=== PATIENT | female | born 1995 | race Hispanic/Latino ===

== ENCOUNTER 2018-12-19 05:31 | Inpatient (IN) | payer BC ==
--- OUTSIDE RECORDS SUMMARY | 2018-12-19 05:33 | XMS REPORT ---
:1995 Author Organization eClinicalWorks Care Team Providers Name Role Phone Herbert Mars Provider Role Unavailable Allergies, Adverse Reactions, Alerts Substance Reaction Event Type N.K.D.A. Info Not Available Non Drug Allergy Problems Problem Type Condition Code Onset Dates Condition Status Assessment Encounter for supervision of other Z34.81 Active normal in first trimester Assessment Amenorrhea N91.2 Active Assessment Encounter for supervision of Z34.91 Active low-risk in first trimester Assessment Encounter to determine O36.80X0 Active viability of , single or unspecified fetus Medications No Known Medications Results Name Result Date Reference Range Unit Abnormality Flag URINALYSIS AUTO W/O SCOPE (68209) ----NIT neg [id number] ----URO 0.2 [id number] ----PROTEIN neg [id number] ----pH 7.0 20180508 ----BLO 1.020 [id number] ----GLUCOSE neg [id number] ----STEPHANIE 1+ [id number] ----BILIRUBIN neg [id number] ----KETONES neg [id number] ----SPECIFIC GRAVITY neg [id number] Summary Purpose eClinicalWorks Submission
--- OUTSIDE RECORDS SUMMARY | 2018-12-19 05:33 | XMS REPORT ---
:1995 Author Organization eClinicalWorks Care Team Providers Name Role Phone Herbert Mars Provider Role Unavailable Allergies No Known Allergies Problems Problem Type Condition Code Onset Dates Condition Status Problem Uterine size-date discrepancy in O26.843 Active third trimester Problem Encounter for supervision of other Z34.82 Active normal in second trimester Problem Encounter for supervision of other Z34.83 Active normal , third trimester Assessment Encounter for supervision of other Z34.83 Active normal , third trimester Medications Medication Code Code Instructions Start End Status Dosage System Date Date + DHA [facility] [id number] 27-1 & 250 MG Active as directed Orally Results No Known Results Summary Purpose eClinicalWorks Submission
--- OUTSIDE RECORDS SUMMARY | 2018-12-19 05:33 | XMS REPORT ---
[...] Status Dosage System Date Date + DHA [facility] [id number] 27-1 & 250 MG Active as directed Orally Results No Known Results Summary Purpose eClinicalWorks Submission
--- OUTSIDE RECORDS SUMMARY | 2018-12-19 05:33 | XMS REPORT ---
[...] Status Dosage System Date Date + DHA [facility] [id number] 27-1 & 250 MG Active as directed Orally Results No Known Results Summary Purpose eClinicalWorks Submission
--- OUTSIDE RECORDS SUMMARY | 2018-12-19 05:33 | XMS REPORT ---
[...] Status Dosage System Date Date + DHA [facility] [id number] 27-1 & 250 MG Active as directed Orally Results No Known Results Summary Purpose eClinicalWorks Submission
--- OUTSIDE RECORDS SUMMARY | 2018-12-19 05:33 | XMS REPORT ---
:1995 Author Organization eClinicalWorks Care Team Providers Name Role Phone Natasha Turner Provider Role Unavailable Allergies, Adverse Reactions, Alerts Substance Reaction Event Type N.K.D.A. Info Not Available Non Drug Allergy Problems Problem Type Condition Code Onset Dates Condition Status Assessment Paraumbilical hernia K42.9 Active Medications No Known Medications Results No Known Results Summary Purpose eClinicalAddShoppers Submission
--- OUTSIDE RECORDS SUMMARY | 2018-12-19 05:33 | XMS REPORT ---
:1995 Author Organization eClinicalWorks Care Team Providers Name Role Phone Herbert Mars Provider Role Unavailable Allergies, Adverse Reactions, Alerts Substance Reaction Event Type N.K.D.A. Info Not Available Non Drug Allergy Problems Problem Type Condition Code Onset Dates Condition Status Assessment Encounter for supervision of Z34.91 Active low-risk in first trimester Assessment Paraumbilical hernia K42.9 Active Medications Medication Code Code Instructions Start End Status Dosage System Date Date + DHA [facility] [id number] 27-1 & 250 MG Active as directed Orally Results No Known Results Summary Purpose eClinicalWorks Submission
--- OUTSIDE RECORDS SUMMARY | 2018-12-19 05:33 | XMS REPORT ---
:1995 [facility] Care Team Providers Name Role Phone Jerad Herbert Provider Role Unavailable Allergies No Known Allergies Problems Problem Type Condition Code Onset Dates Condition Status Assessment Encounter for supervision of other Z34.82 Active normal in second trimester Problem Encounter for supervision of other Z34.82 Active normal in second trimester Medications Medication Code Code Instructions Start End Status Dosage System Date Date + DHA [facility] [id number] 27-1 & 250 MG Active as directed Orally Results Name Result Date Reference Range Unit Abnormality Flag CBC (INCLUDES DIFF/PLT) ----ABSOLUTE BASOPHILS 39 [id number] 0-200 cells/uL N ----ABSOLUTE EOSINOPHILS 58 34190040 15-500 cells/uL N ----LYMPHOCYTES 20.4 03559347 % N ----NEUTROPHILS 73.2 22388738 % N ----PLATELET COUNT 243 [id number] 140-400 Thousand/uL N ----EOSINOPHILS 0.6 68709434 % N ----RDW 12.9 51444418 11.0-15.0 % N ----MONOCYTES 5.4 47126858 % N ----MCHC 33.7 95910825 32.0-36.0 g/dL N ----MCH 30.0 [id number] 27.0-33.0 pg N ----MCV 89.0 16354095 80.0-100.0 fL N ----ABSOLUTE NEUTROPHILS 7100 96114751 0654-5234 cells/uL N ----MPV 10.7 50310770 7.5-12.5 fL N ----ABSOLUTE MONOCYTES 524 32011846 200-950 cells/uL N ----ABSOLUTE LYMPHOCYTES 1979 90633234 850-3900 cells/uL N ----BASOPHILS 0.4 30795618 % N ----WHITE BLOOD CELL 9.7 77590019 3.8-10.8 Thousand/uL N COUNT ----RED BLOOD CELL COUNT 3.83 11869488 3.80-5.10 Million/uL N ----HEMOGLOBIN 11.5 20180908 11.7-15.5 g/dL L ----HEMATOCRIT 34.1 20180908 35.0-45.0 % L Summary Purpose eClinicalWorks Submission
--- OUTSIDE RECORDS SUMMARY | 2018-12-19 05:33 | XMS REPORT ---
[...] Z34.83 Active normal , third trimester Assessment Uterine size-date discrepancy in O26.843 Active third trimester Assessment Encounter for supervision of other Z34.83 Active normal , third trimester Medications Medication Code Code Instructions Start End Status Dosage System Date Date + DHA [facility] [id number] 27-1 & 250 MG Active as directed Orally Results No Known Results Summary Purpose eClinicalWorks Submission
--- OUTSIDE RECORDS SUMMARY | 2018-12-19 05:33 | XMS REPORT ---
:1995 Author Organization eClinicalWorks Care Team Providers Name Role Phone Herbert Mars Provider Role Unavailable Allergies No Known Allergies Problems Problem Type Condition Code Onset Dates Condition Status Assessment Elevated glucose tolerance test R73.09 Active Problem Encounter for supervision of other Z34.82 Active normal in second trimester Medications No Known Medications Results No Known Results Summary Purpose eClinicalWorks Submission
[2018-12-19] MEDS ORDERED: PROMETHAZINE 25 MG/ML VIAL IV PRN (09:21)
[2018-12-19] MEDS ORDERED: BUTORPHANOL 1 MG/ML INJ IV PRN (09:21)
[2018-12-19] MEDS ORDERED: Ringers Lactate 1,000 ML IV PRN (09:21)
[2018-12-19] MEDS ORDERED: Ringers Lactate 1,000 ML IV SCH (10:00)
[2018-12-19 10:09] LABS: RPR Titer ND
[2018-12-19 10:13] LABS: Absolute Lymphocytes (CBC) 1.9 K/uL (0.7-4.9); Absolute Monocytes 0.6 K/uL (0.1-1.3); Absolute Neutrophil 11.1 K/uL (1.8-8.0); Basophils % 0.5 % (0-1.3); Hematocrit 36.7 % (36.0-45.0); Lymphocytes % 13.7 % (15.3-44.8); MPV 9.8 fL (7.6-11.3); Monocytes % 4.5 % (3.3-12.3); RBC Red Blood Cell Count 4.21 M/uL (3.86-4.86)
[2018-12-19 10:14] LABS: Urine Appearance CLEAR; Urine Bilirubin NEGATIVE (NEG); Urine Blood NEGATIVE (NEG); Urine Color YELLOW; Urine Glucose NEGATIVE (NEG); Urine Protein NEGATIVE (NEG); Urine Specific Gravity <=1.005 (1.005-1.030); Urine Urobilinogen 0.2 mg/dL (0.2-1.0); Urine pH 6.5 (5.0-7.0)
[2018-12-19 10:20] LABS: Urine Microscopic Reflex NO UMIC
[2018-12-19] MEDS ORDERED: FENTANYL CITR 100 MCG/2 ML IV ONE (10:22)
[2018-12-19] MEDS ORDERED: ROPIVACAINE HCL 100 ML IV PRN (10:22)
[2018-12-19] MEDS ORDERED: ROPIVACAINE HCL 0.2% 20ML AMP IV ONE (10:24)
[2018-12-19] MEDS ORDERED: METHYLERGONOVINE 0.2MG/ML AMP IM ONE (10:30)
[2018-12-19] MEDS ORDERED: LIDOCAINE 1% MPF 30 ML VIAL SQ ONE (10:30)
[2018-12-19] MEDS ORDERED: CARBOPROST TROME 250 MCG/ML IM ONE (10:30)
[2018-12-19 10:56] LABS: Blood Morphology Comment NOT SEEN (NOT SEEN); Platelet Estimate ADEQ; Urine White Blood Cell Casts OK
[2018-12-19] MEDS ORDERED: OXYTOCIN/LR 20 UNIT/1,000 ML BAG IV SCH (11:00)
[2018-12-19 11:41] VITALS: BMI 29.8
[2018-12-19] MEDS ORDERED: NA CHLORIDE 0.9% 1,000 ML ONE (12:34)
--- NOTE | 2018-12-19 13:43 | P.OBGYNHP ---
Certification for Inpatient Patient admitted to: Inpatient With expected LOS: <2 Midnights Patient will require the following post-hospital care: None Practitioner: I am a practitioner with admitting privileges, knowledge of patient current condition, hospital course, and medical plan of care. Services: Services provided to patient in accordance with Admission requirements found in Title 42 Section 412.3 of the Code of Federal Regulations Patient History Date of Service: 12/19/18 Reason for admission: LABOR History of Present Illness: Patient is a 22-year-old 2 para 1001 who presents at 38 weeks and 4 days gestation in active labor. Patient 1st presented to labor and delivery and was found to be fingertip. She is now dilated to 2 cm and 60% effaced. Patient is to be admitted for active management of labor. Patient desires epidural placement. Anesthesia will be contacted. Patient has obtained care with me beginning at 9 weeks gestation. care has been uncomplicated. Patient does have an umbilical hernia for which she is going to follow up with General surgery. Rh positive. Rubella immune. Hepatitis negative HIV negative. GBS negative. See record for further details Allergies No Known Allergies Allergy (Unverified 06/04/16 21:24) Home Medications: Pnv No.95/Ferrous Fum/Folic AC [ Caplet] 1 each PO DAILY 12/19/18 - Past Medical/Surgical History Has patient received pneumonia vaccine in the past: No Diabetic: No Past Medical History: Patient denies medical history -: Vaginal delivery x1 - Family History Family History: Reviewed- Non-Contributory - Social History Smoking Status: Never smoker Alcohol use: No CD- Drugs: No Caffeine use: Yes Place of Residence: Home Review of Systems 10-point ROS is otherwise unremarkable Physical Examination - Vital Signs Temperature: 98.4 F Blood Pressure: 119/72 Pulse: 112 Respirations: 18 - General General: Alert, Oriented x3, Moderate distress HEENT: Atraumatic Neck: Supple Respiratory: Normal air movement Cardiovascular: No edema, Normal pulses Gastrointestinal: Other (Gravid abdomen) Musculoskeletal: No clubbing, No swelling Integumentary: No rashes, No breakdown Neurological: Normal gait, Normal speech - Female Pelvic External genitalia: Normal, No lesions, No masses Vagina: Normal, [place], Moist Cervix: Dilation (3 cm), Effacement (70%), station (-3) Uterus: Gravid Adnexa: Unable to evaluate - Obstetrics heart rate tracing: Category 2 Amniotic membrane: AROM (Light meconium) Laboratory Data (last 24 hrs) 12/19/18 09:40: WBC 13.7 H, Hgb 12.2, Hct 36.7, Plt Count 205 Assessment and Plan - Plan Patient is a 22-year-old 2 para 1001 at 30 weeks and labor. Rupture of membranes has been performed she patient is GBS negative. Epidural will be placed soon. Continuous maternal monitoring are performed. Routine intrapartum care will be provided. Anticipate vaginal . Discharge Plan: Home Plan to discharge in: 48 Hours - Advance Directives Does patient have a Living Will: No Does patient have a Durable POA for Healthcare: No
[2018-12-19] MEDS ORDERED: METHYLERGONOVINE 0.2 MG TAB PO PRN (13:48)
[2018-12-19] MEDS ORDERED: IBUPROFEN 200 MG TAB PO PRN (13:48)
[2018-12-19] MEDS ORDERED: ONDANSETRON 4 MG (ODT) TAB PO PRN (13:48)
[2018-12-19] MEDS ORDERED: ACETAMINOPHEN 500 MG TAB PO PRN (13:48)
[2018-12-19] MEDS ORDERED: DOCUSATE NA/SENNA CONC 1 TAB PO PRN (13:48)
[2018-12-19] MEDS ORDERED: Oxycodone HCl/Acetaminophen 1 TAB TAB PO PRN (13:48)
[2018-12-19] MEDS ORDERED: BISACODYL 10 MG RECTAL SUPP RECT PRN (13:48)
--- NOTE | 2018-12-19 13:48 | P.OP ---
Date of Service: 12/19/18 Findings and Operative Technique Patient is a 22-year-old 2 para 1001 who presented for admission for labor. Rupture of membranes was performed light meconium fluid was noted. Patient was started on Pitocin for labor augmentation and epidural catheter was placed for pain management. Later patient was found to have recurrent variable deceleration. At this time a uterine pressure catheter was placed to perform amnio infusion. This helped to alleviate some of the decelerations and patient rapidly dilated to fully dilated. Patient delivered a viable female infant in cephalic presentation on December 19, 2018 at __13:25___. Once infant was delivered terminal meconium was noted. Umbilical cord was noted to be short. The umbilical cord was clamped and cut nose and mouth were suctioned with a suction bulb. Patient will placed on mother's abdomen for skin to skin bonding. Attention was then turned to the umbilical cord cord blood was obtained. Placenta was then delivered with gentle traction. Placenta was examined and noted to be intact. Perineum was inspected was noted to have a first-degree laceration this was repaired with a 2 0 Vicryl in the usual fashion. Fundus was palpated and found to be firm estimated blood loss was 200 cc. Patient and baby are both doing well. Apgars were _9/9___. Infant's weight was found to be __6 lb 2 oz__. First stage of labor was ___5 hours 4 min __. 2nd stage of labor was ___17 min.
[2018-12-19] MEDS ORDERED: Ringers Lactate 1,000 ML IV ONE (17:20)
[2018-12-19 21:41] LABS: RPR (Rapid Plasma Reagin) NON-REACT (NON-REACT)
[2018-12-20 06:44] LABS: Absolute Lymphocytes (CBC) 2.4 K/uL (0.7-4.9); Absolute Monocytes 0.9 K/uL (0.1-1.3); Absolute Neutrophil 8.6 K/uL (1.8-8.0); Basophils % 0.3 % (0-1.3); Eosinophils % 0.4 % (0-4.4); Hematocrit 33.5 % (36.0-45.0); Lymphocytes % 19.8 % (15.3-44.8); MPV 9.2 fL (7.6-11.3); Monocytes % 7.8 % (3.3-12.3); RBC Red Blood Cell Count 3.83 M/uL (3.86-4.86)
[2018-12-20 10:39] VITALS: BP 116/58; TEMP 97.6
--- NOTE | 2018-12-20 20:33 | P.DS ---
Admission Date: 12/19/18 Discharge Date: 12/20/18 Disposition: ROUTINE DISCHARGE Discharge Condition: GOOD Reason for Admission: LABOR Brief History of Present Illness: Patient is a 22-year-old 2 para 1001 who presents at 38 weeks and 4 days gestation in active labor. Patient 1st presented to labor and delivery and was found to be fingertip. She is now dilated to 2 cm and 60% effaced. Patient is to be admitted for active management of labor. Patient desires epidural placement. Anesthesia will be contacted. Patient has obtained care with ne beginning at 9 weeks gestation. care has been uncomplicated. Patient does have an umbilical hernia for which she is going to follow up with General surgery. Rh positive. Rubella immune. Hepatitis negative HIV negative. GBS negative. See record for further details Hospital Course: Patient did well following delivery. Her pain has been well controlled. She is tolerating a regular diet. She is bonding well with the baby. Vital Signs/Physical Exam: Temp Pulse Resp BP Pulse Ox 97.6 F 111 H 18 116/58 L 12/20/18 08:45 12/20/18 08:45 12/20/18 08:45 12/20/18 08:45 General: Alert, In no apparent distress HEENT: Atraumatic Neck: Supple Respiratory: Normal air movement Cardiovascular: No edema, Normal pulses Gastrointestinal: Other (fundus firm palpable beneath umbilicus) Musculoskeletal: No clubbing, No swelling Integumentary: No rashes, No breakdown Neurological: Normal gait, Normal speech Laboratory Data at Discharge: WBC 12.1 K/uL (4.3-10.9) H 12/20/18 06:19 Hgb 10.9 g/dL (12.0-15.0) L 12/20/18 06:19 Hct 33.5 % (36.0-45.0) L 12/20/18 06:19 Plt Count 205 K/uL (152-406) 12/20/18 06:19 Home Medications: Pnv No.95/Ferrous Fum/Folic AC [ Caplet] 1 each PO DAILY 12/19/18 Diet: Regular Activity: No lifting more than 10 lbs Followup: Herbert Mars DO [ACTIVE - CAN ADMIT] -
[2018-12-23 21:51] LABS: HBsAG Nonreactive (Nonreactive)
== END 2018-12-20 17:23 | disposition home or self-care (01) | DRG 806 ==
LOC: L&D 05:31 → 2ND-WC 07:23
PROVIDERS: ADMIT Student in an Organized Health Care Education/Training Program; ATTEND Student in an Organized Health Care Education/Training Program
PROC: 10E0XZZ Delivery of Products of Conception, External Approach (ICD-10-PCS; principal; 2018-12-19)
PROC: 10907ZC Drainage of Amniotic Fluid, Therapeutic from Products of Conception, Via Natural or Artificial Opening (ICD-10-PCS; 2018-12-19)
PROC: 0HQ9XZZ Repair Perineum Skin, External Approach (ICD-10-PCS; 2018-12-19)
PROC: 10H07YZ Insertion of Other Device into Products of Conception, Via Natural or Artificial Opening (ICD-10-PCS; 2018-12-19)
DX: O77.0 Labor and delivery complicated by meconium in amniotic fluid (principal); O98.32 Other infections with a predominantly sexual mode of transmission complicating childbirth; Z37.0 Single live birth; O76 Abnormality in fetal heart rate and rhythm complicating labor and delivery; O69.3XX0 Labor and delivery complicated by short cord, not applicable or unspecified; O70.0 First degree perineal laceration during delivery; A63.8 Other specified predominantly sexually transmitted diseases; Z3A.38 38 weeks gestation of pregnancy; O75.89 Other specified complications of labor and delivery; K42.9 Umbilical hernia without obstruction or gangrene
CPT/HCPCS: 36415; 81003; 85025; 86592; 86901; 87340; 99218; J2210; J2590; J2795; J3010; J7030

== ENCOUNTER 2021-11-27 16:33 | Emergency (ER) | payer BC, SELFPAY ==
--- OUTSIDE RECORDS SUMMARY | 2021-11-27 16:36 | XMS REPORT | Continuity of Care Document ---
:1995 Author Organization [facility] t Address [address] [place] [address] Care Team Providers Name Role Phone Kimmie Donahue Primary Care Physician Doctor Unassigned, [place] Attending Clinician Unavailable Marsha SELF Attending Clinician Problems Condition Condition Condition Status Onset Resolution Last Treating Co mments Source Name Details Category Date Date Treatment Clinician Date Encounter Encounter Problem Active [facility] - supervisio supervisio Me moria n of other n of other l normal normal Outpati ent in second in second Clin ics trimester trimester Uterine Uterine Problem Active [facility] size-date size-date Luke s - discrepanc discrepanc Me moria y in third y in third l trimester trimester Outp ati ent Clinics Encounter Encounter Diagnosis Active [facility] - supervisio supervisio Me moria n of other n of other l normal normal Outpati , , en t third third Clinics trimester trimester No known No known Disease Unive rs active active ity of problems problems [facility] Allergies, Adverse Reactions, Alerts This patient has no known allergies or adverse reactions. Social History Social Habit Start Date Stop Date Quantity Comments Source Exposure to Not sure University SARS-CoV-2 [facility] (event) [place] Tobacco use and 2021-07-15 2021-07-15 Never used Universit y of exposure 00:00:00 00:00:00 [facility] Alcohol intake 2021-07-15 2021-07-15 Lifetime University of 00:00:00 00:00:00 non-drinker [place] [facility]finding[facility] Sex Assigned At [birth year] Universit y of 00:00:00 00:00:00 [facility] Smoking Status Start Date Stop Date Source Never smoker [facility] Medications Ordered Filled Start Stop Current Ordering Indication Dosage Frequency Signature Comments Components Source Medication Medication Date Date Medication? Clinician (SIG) Name Name estradioL 2020-09 Yes [id number] Apply 0.5g Univers 0.01 % (0.1 1-11 (pea size) it y of mg/gram) 00:[place] 00 with Medical cream fingertip Branch nightly for four weeks and then discontinu e. estradioL 2020-09 Yes [id number] Apply 0.5g Univers 0.01 % (0.1 1-11 (pea size) it y of mg/gram) 00:00[place] 00 with Medical cream fingertip Branch nightly for four weeks and then discontinu e. + + Yes Herbert as [facility] directed [facility] ent Clinics Procedures Procedure Date / Time Performed Performing Clinician Sourc e EXTERNAL PROVIDER 2021-11-06 06:01:00 Doctor Unassigned, No Univ [facility] RECORDS Name Medical Branch Encounters Start End Encounter Admission Attending Care Care Encounter Source Date/Time Date/Time Type Type Clinicians Facility Department ID 2021-11-06 2021-11-06 Orders Doctor PUENTE [id number] Univers 00:00:00 00:00:00 Only Unassigned, [place] 350.1.13.10 ity of [place] [facility] 4.2.7.2.686 Flash as [id number] [facility] 009 Branch 2021-07-28 2021-07-28 Telephone Marsha, GERALD [id number] Univers 00:00:00 00:00:00 Kimmie Y [facility] 350.1.13.10 i ty of CL[place] 4[place].2.[place] [id number] [facility] 204 Branch 2018-12-14 2018-12-14 [facility] [id number] 10:45:00 10:45:00 [facility] l Outpati ent Clinics 2018-12-07 2018-12-07 [facility] [id number] 10:15:00 10:15:00 [facility] 2018-11-22 2018-11-22 [facility] [id number] [address] 15:15:00 15:15:00 t [facility] L es - Care [facility] 2018-11-08 2018-11-08 [facility] [id number] 10:30:00 10:30:00 t [facility] 2018-10-10 2018-10-10 [facility] [id number] 10:00:00 10:00:00 t [facility] es - Care [facility] 2018-09-13 2018-09-13 [facility] [id number] 10:49:00 10:49:00 t [facility] - Care [facility] 2018-09-07 2018-09-07 [facility] [id number] [facility] 10:30:00 10:30:00 t [facility] L es - Care [facility] 2018-06-02 2018-06-02 [facility] [id number] 10:30:00 10:30:00 [facility] 2018-05-03 2018-05-03 [facility] [id number] 11:15:00 11:15:00 t [facility] 2017-12-22 2017-12-22 [facility] [id number] 09:00:00 09:00:00 t [facility] Results This patient has no known results.
[2021-11-27] MEDS ORDERED: LORAZEPAM 1 MG TABLET ONE (17:02)
[2021-11-27 17:27] LABS: Urine Blood Negative (Negative); Urine Glucose Negative (Negative); Urine Protein Negative (Negative); Urine pH 5.5 (5.0-7.0)
--- NOTE | 2021-11-27 18:11 | ER ---
Nurse's Notes [facility] Name: Rosa Maria Britton Age: 25 yrs Sex: Female : 1995 Arrival Date: 11/27/2021 Time: 16:36 Bed 13 Private MD: Diagnosis: Tachycardia, unspecified Presentation: 11/27 16:46 Chief complaint: Patient states: Palpitations for 1 week. Feels weak for a few days. CP ll1 for 1 day. Coronavirus screen: Vaccine status: Patient reports being unvaccinated. Client denies travel out of the [place] in the last 14 days. At this time, the client does not indicate any symptoms associated with coronavirus-19. Ebola Screen: Patient denies travel to an Ebola-affected area in the 21 days before illness onset. Initial Sepsis Screen: Does the patient meet any 2 criteria? HR > 90 bpm. No. Patient's initial sepsis screen is negative. Does the patient have a suspected source of infection? No. Patient's initial sepsis screen is negative. Risk Assessment: Do you want to hurt yourself or someone else? Patient reports no desire to harm self or others. Onset of symptoms was November 30, 2021. 16:46 Method Of Arrival: Ambulatory ll1 16:46 Acuity: RONALD 2 ll1 Historical: - Allergies: 16:47 No Known Allergies; ll1 - PMHx: 16:47 None; ll1 - PSHx: 16:47 hernia repair; ll1 - Immunization history:: Client reports having NOT received the Covid vaccine. Flu vaccine status is unknown. - Social history:: Smoking status: Patient denies any tobacco usage or history of. - Family history:: not pertinent. Screenin:09 Abuse screen: Denies threats or abuse. Nutritional screening: No deficits noted. ss7 Tuberculosis screening: No symptoms or risk factors identified. Fall Risk None identified. Assessment: 17:02 General: Appears in no apparent distress. Behavior is anxious. Pain: Denies pain. ss7 Neuro: No deficits noted. Level of Consciousness is awake, alert, obeys commands, Oriented to person, place, time, situation, Cardiovascular: Heart tones S1 S2 Rhythm is sinus tachycardia. Respiratory: Breath sounds are clear bilaterally. GI: Bowel sounds present X 4 quads. : No deficits noted. EENT: No deficits noted. Derm: No deficits noted. Musculoskeletal: No deficits noted. 17:10 Pain: Pain does not radiate. Pain began na. ss7 18:30 Reassessment: Patient is alert, oriented x 3, equal unlabored respirations, skin aa5 warm/dry/pink. Patient states feeling better. Patient states symptoms have improved. : Reports burning with urination. Vital Signs: 16:46 BP 142 / 92; Pulse 152; Resp 20; Temp 97.9; Pulse Ox 98% ; Weight 71.21 kg; Height 5 ll1 ft. 2 in. (157.48 cm); Pain 7/10; 17:10 Pulse 155; Resp 22; Pulse Ox 99% ; ss7 18:11 BP 125 / 79; Pulse 129; Resp 18; Pulse Ox 100% on R/A; ss7 18:30 Pulse 115; Resp 18 S; Pulse Ox 98% on R/A; aa5 16:46 Body Mass Index 28.72 (71.21 kg, 157.48 cm) ll1 18:30 MD aware of HR of 115 prior to discharge. aa5 ED Course: 16:36 Patient arrived in ED. ja2 16:47 Triage completed. ll1 16:48 Arm band placed on Patient placed in an exam room, on a stretcher. ll1 16:53 EKG done, by ED staff, reviewed by Yvette Cheek MD. aa5 16:56 Yvette Cheek MD is Attending Physician. ma2 17:02 Zandra Clark, RN is Primary Nurse. ss7 17:09 Patient has correct armband on for positive identification. Bed in low position. Call ss7 light in reach. Pulse ox on. NIBP on. 17:09 No provider procedures requiring assistance completed. Patient did not have IV access ss7 during this emergency room visit. per Ham. Patient maintains SpO2 saturation greater than 95% on room air. 17:32 Urine --Ancillary (enter results) Sent. ss7 Administered Medications: 17:03 Drug: Ativan (LORazepam) 1 mg Route: PO; aa5 18:25 Follow up: Response: Anxiety decreased ss7 Outcome: 18:10 Discharge ordered by . ma2 18:11 Discharged to home ambulatory, with family. ss7 18:11 Condition: good 18:11 Discharge instructions given to patient, Instructed on discharge instructions, follow up and referral plans. Demonstrated understanding of instructions, follow-up care. 18:30 Demonstrated understanding of medications, Prescriptions given X 1. aa5 18:32 Patient left the ED. aa5 Signatures: Jil Hardin, RN RN aa5 Yvette Cheek MD MD ma2 Alee Cassidy RN RN ll1 Summer Sanchez Shana, RN RN ss7 Corrections: (The following items were deleted from the chart) 16:48 16:47 Allergies: NKA; ll1 ll1 18:34 18:30 Pulse 115bpm; Resp 18bpm; Spontaneous; Pulse Ox 98% RA; aa5 aa5
--- NOTE | 2021-11-27 18:11 | EDPHYS ---
Physician Documentation [facility] Name: Rosa Maria Britton Age: 25 yrs Sex: Female : 1995 Arrival Date: 11/27/2021 Time: 16:36 Bed 13 Private MD: ED Physician Yvette Cheek HPI: 11/27 17:10 This 25 yrs old Female presents to ER via Ambulatory with complaints of ma2 Palpitation. 17:10 25-year-old female with history of anxiety and palpitation and tachycardia sinus, ma2 presents with palpitation, and feeling anxiety. Patient said that she had this frequently in the past, she had full blood work done a week ago with her PCP were all test came back normal but includes CBC CMP and thyroid panel. Patient also said that urine test was normal but showed ketones and was told that she might be dehydrated. Patient states she does not have any chest pain at this time. She wants her palpitation to go away.. Historical: - Allergies: 16:47 No Known Allergies; ll1 - PMHx: 16:47 None; ll1 - PSHx: 16:47 hernia repair; ll1 - Immunization history:: Client reports having NOT received the Covid vaccine. Flu vaccine status is unknown. - Social history:: Smoking status: Patient denies any tobacco usage or history of. - Family history:: not pertinent. ROS: 17:10 Constitutional: Negative for fever, chills, and weight loss. ma2 17:10 All other systems are negative. Exam: 17:10 Constitutional: This is a well developed, well nourished patient who is awake, alert, ma2 and in no acute distress. Head/Face: Normocephalic, atraumatic. Eyes: Pupils equal round and reactive to light, extra-ocular motions intact. Lids and lashes normal. Conjunctiva and sclera are non-icteric and not injected. Cornea within normal limits. Periorbital areas with no swelling, redness, or edema. ENT: Nares patent. No nasal discharge, no septal abnormalities noted. Tympanic membranes are normal and external auditory canals are clear. Oropharynx with no redness, swelling, or masses, exudates, or evidence of obstruction, uvula midline. Mucous membranes moist. Neck: Trachea midline, no thyromegaly or masses palpated, and no cervical lymphadenopathy. Supple, full range of motion without nuchal rigidity, or vertebral point tenderness. No Meningismus. Chest/axilla: Normal chest wall appearance and motion. Nontender with no deformity. No lesions are appreciated. Cardiovascular: Patient has tachycardia with normal regular rhythm with a normal S1 and S2. No gallops, murmurs, or rubs. Normal PMI, no JVD. No pulse deficit Respiratory: Lungs have equal breath sounds bilaterally, clear to auscultation and percussion. No rales, rhonchi or wheezes noted. No increased work of breathing, no retractions or nasal flaring. Abdomen/GI: Soft, non-tender, with normal bowel sounds. No distension or tympany. No guarding or rebound. No evidence of tenderness throughout. Back: No spinal tenderness. No costovertebral tenderness. Full range of motion. Skin: Warm, dry with normal turgor. Normal color with no rashes, no lesions, and no evidence of cellulitis. MS/ Extremity: Pulses equal, no cyanosis. Neurovascular intact. Full, normal range of motion. Neuro: Awake and alert, GCS 15, oriented to person, place, time, and situation. Cranial nerves II-XII grossly intact. Motor strength 5/5 in all extremities. Sensory grossly intact. Cerebellar exam normal. Normal gait. Vital Signs: 16:46 BP 142 / 92; Pulse 152; Resp 20; Temp 97.9; Pulse Ox 98% ; Weight 71.21 kg; Height 5 ll1 ft. 2 in. (157.48 cm); Pain 7/10; 17:10 Pulse 155; Resp 22; Pulse Ox 99% ; ss7 18:11 BP 125 / 79; Pulse 129; Resp 18; Pulse Ox 100% on R/A; ss7 18:30 Pulse 115; Resp 18 S; Pulse Ox 98% on R/A; aa5 16:46 Body Mass Index 28.72 (71.21 kg, 157.48 cm) ll1 18:30 MD aware of HR of 115 prior to discharge. aa5 MDM: 16:57 Patient medically screened. ma2 18:07 Differential diagnosis: Anxiety versus panic attack versus tachycardia versus ma2 dehydration, heart rate is down to 100 after Ativan. Patient feels better. Palpitation has resolved and she would like to be discharged. Initial EKG done and shows tachycardia rate is 150, sinus tachycardia, QT within normal limits other intervals are within normal limits, no ischemic changes. No Brugada or S1 every 3 T3. Data reviewed: vital signs, nurses notes, EMS record. Counseling: I had a detailed discussion with the patient and/or guardian regarding: the historical points, exam findings, and any diagnostic results supporting the discharge/admit diagnosis, the presence of at least one elevated blood pressure reading (>120/80) during this emergency department visit, the need for outpatient follow up. Medical screen evaluation completed. EMTALA emergency medical condition absent. Response to treatment: the patient's symptoms have markedly improved after treatment. 11/27 17:27 Order name: Urine Dipstick-Ancillary; Complete Time: 17:29 EDIA 11/27 17:30 Order name: Urine --Ancillary (enter results); Complete Time: 18:18 11/27 16:56 Order name: Urine Dipstick-Ancillary (obtain specimen); Complete Time: 17:32 [facility] 11/27 16:56 Order name: Urine Test (obtain specimen); Complete Time: 17:32 wy2 11/27 16:56 Order name: EKG - Nurse/Tech; Complete Time: 16:59 ma2 Administered Medications: 17:03 Drug: Ativan (LORazepam) 1 mg Route: PO; aa5 18:25 Follow up: Response: Anxiety decreased ss7 Disposition Summary: 11/27/21 18:10 Discharge Ordered Location: Home ma2 Condition: Stable ma2 Diagnosis - Tachycardia, unspecified ma2 Followup: ma2 - With: Private Physician - When: Tomorrow - Reason: If symptoms return, Continuance of care Discharge Instructions: - Discharge Summary Sheet ma2 - Sinus Tachycardia ma2 Forms: - Work release form aa5 - Medication Reconciliation Form ma2 - Thank You Letter ma2 - Antibiotic Education ma2 - Prescription Opioid Use ma2 Prescriptions: - Bactrim 400-80 mg Oral Tablet - take 2 tablets by ORAL route every 12 hours; 14 tablet; Refills: 0, Product ma2 Selection Permitted Signatures: Dispatcher [employer] EDMS Jil Hardin RN RN aa5 Yvette Cheek MD MD ma2 Alee Cassidy RN RN ll1 Zandra Clark RN ss7 Corrections: (The following items were deleted from the chart) 16:48 16:47 Allergies: NKA; ll1 ll1
[2021-11-27 18:36] VITALS: TEMP 97.9
[2021-11-27 18:38] VITALS: BP 125/79; O2SAT 100
== END 2021-11-27 18:32 | disposition home or self-care (01) ==
LOC: ER 16:33
DX: R00.0 Tachycardia, unspecified (principal)
CPT/HCPCS: 81003; 81025; 99285

== ENCOUNTER 2021-11-29 08:14 | Emergency (ER) | payer SELFPAY ==
--- OUTSIDE RECORDS SUMMARY | 2021-11-29 08:17 | XMS REPORT | Continuity of Care Document ---
:1995 Author Organization [facility] t Address [address] [place] [address] Care Team Providers Name Role Phone Kimmie Donahue Primary Care Physician Doctor Unassigned, [place] Attending Clinician Unavailable Marsha SELF Attending Clinician [...] rs active active ity of problems problems [facility] Allergies, Adverse Reactions, Alerts This patient has no known allergies or adverse reactions. Social History Social Habit Start Date Stop Date Quantity Comments Source Exposure to Not sure University of SARS-CoV-2 [facility] (event) Branch Tobacco use and 2021-07-15 2021-07-15 Never used Universit y of exposure 00:00:00 00:00:00 [facility] Alcohol intake 2021-07-15 2021-07-15 Lifetime University of 00:00:00 00:00:00 non-drinker [facility] (finding) Branch Sex Assigned At [birth year] Universit y of 00:00:00 00:00:00 [facility] Smoking Status Start Date Stop Date Source Never smoker [facility] Branch Medications Ordered Filled Start Stop Current Ordering Indication Dosage Frequency Signature Comments Components Source Medication Medication Date Date Medication? Clinician (SIG) Name Name estradioL 2020-09 Yes [id number] Apply 0.5g Univers 0.01 % (0.1 1-11 (pea size) it y of mg/gram[place] 00 with Medical cream fingertip Branch nightly for four weeks and then discontinu e. estradioL 2020-09 Yes [id number] Apply 0.5g Univers 0.01 % (0.1 1-11 (pea size) it y of mg/gram) 00:[place] 00 with Medical cream fingertip Branch nightly for four weeks and then discontinu e. + + Yes Herbert as [facility] directed [facility] Procedures Procedure Date / Time Performed Performing Clinician Sourc e EXTERNAL PROVIDER 2021-11-06 06:01:00 Doctor Unassigned, No Univ [facility] RECORDS Name Medical Branch Encounters Start End Encounter Admission Attending Care Care Encounter Source Date/Time Date/Time Type Type Clinicians Facility Department ID 2021-11-06 2021-11-06 Orders Doctor PUENTE [id number] Univers 00:00:00 00:00:00 Only Unassigned, [place] [id number] ity of [place] [facility] [id number] Flash as [id number] [facility] 009 Branch 2021-07-28 2021-07-28 Telephone Marsha, GERALDIT [id number] Univers 00:00:00 00:00:00 Kimmie Y HEALTH [id number] i ty of CL[place] [id number] [id number] [facility] 204 Branch 2018-12-14 2018-12-14 [facility] [id number] [facility] 10:45:00 10:45:00 [facility] 2018-12-07 2018-12-07 [facility] [id number] [facility] [address] 10:15:00 10:15:00 t [facility] 2018-11-22 2018-11-22 [facility] [id number] 15:15:00 15:15:00 t [facility] 2018-11-08 2018-11-08 [facility] [id number] [address] 10:30:00 10:30:00 t [facility] 2018-10-10 2018-10-10 [facility] [id number] 10:00:00 10:00:00 [facility] 2018-09-13 2018-09-13 [facility] [id number] [facility] [address] 10:49:00 10:49:00 t [facility] 2018-09-07 2018-09-07 [facility] [id number] 10:30:00 10:30:00 t [facility] 2018-06-02 2018-06-02 [facility] [id number] [facility] [address] 10:30:00 10:30:00 t Womens Womens [facility] 2018-05-03 2018-05-03 [facility] [id number] 11:15:00 11:15:00 t [facility] 2017-12-22 2017-12-22 [facility] [id number] 09:00:00 09:00:00 t [facility] s [facility] Results This patient has no known results.
--- NOTE | 2021-11-29 09:07 | EDPHYS ---
Physician Documentation [facility] Name: Rosa Maria Britton Age: 25 yrs Sex: Female : 1995 Arrival Date: 11/29/2021 Time: 08:15 Bed 12 Private MD: ED Physician Rich Brandon HPI: 11/29 09:38 This 25 yrs old Female presents to ER via Ambulatory with complaints of kdr Anxiety, Nausea. 09:39 Patient has had intermittent palpitations and anxiety for the last week or so. She was kdr seen here previously for similar symptoms as well as dysuria. She was treated with lorazepam and an antibiotic. She has not started the antibiotic as yet and the effects from the lorazepam wore off.. Onset: The symptoms/episode began/occurred gradually, at an unknown time. Severity of symptoms: At their worst the symptoms were mild in the emergency department the symptoms have improved. The patient has experienced similar episodes in the past, a few times. The patient has not recently seen a physician. 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 - Social history:: Smoking status: Patient denies any tobacco usage or history of. Patient/guardian denies using alcohol, street drugs. ROS: 09:39 Constitutional: Negative for fever, chills, and weight loss, Eyes: Negative for injury, kdr pain, redness, and discharge, ENT: Negative for injury, pain, and discharge, Neck: Negative for injury, pain, and swelling, Respiratory: Negative for shortness of breath, cough, wheezing, and pleuritic chest pain, Abdomen/GI: Negative for abdominal pain, nausea, vomiting, diarrhea, and constipation, Back: Negative for injury and pain, MS/Extremity: Negative for injury and deformity, Skin: Negative for injury, rash, and discoloration, Neuro: Negative for headache, weakness, numbness, tingling, and seizure activity. Psych: Negative for depression, anxiety, suicide ideation, homicidal ideation, and hallucinations, Allergy/Immunology: Negative for hives, rash, and allergies, Endocrine: Negative for neck swelling, polydipsia, polyuria, polyphagia, and marked weight changes, Hematologic/Lymphatic: Negative for swollen nodes, abnormal bleeding, and unusual bruising. 09:39 Cardiovascular: Positive for palpitations, Negative for chest pain, edema, orthopnea, paroxysmal nocturnal dyspnea. 09:39 : Positive for urinary symptoms, Negative for small amounts, hematuria, pelvic pain, flank pain, burning with urination, difficulty urinating, bladder incontinence, foul smelling urine. Exam: 09:39 Constitutional: This is a well developed, well nourished patient who is awake, alert, kdr and in no acute distress. Head/Face: Normocephalic, atraumatic. Eyes: Pupils equal round and reactive to light, extra-ocular motions intact. Lids and lashes normal. Conjunctiva and sclera are non-icteric and not injected. Cornea within normal limits. Periorbital areas with no swelling, redness, or edema. Neck: Trachea midline, no thyromegaly or masses palpated, and no cervical lymphadenopathy. Supple, full range of motion without nuchal rigidity, or vertebral point tenderness. No Meningismus. Chest/axilla: Normal chest wall appearance and motion. Nontender with no deformity. No lesions are appreciated. Cardiovascular: Regular rate and rhythm with a normal S1 and S2. No gallops, murmurs, or rubs. Normal PMI, no JVD. No pulse deficits. Respiratory: Lungs have equal breath sounds bilaterally, clear to auscultation and percussion. No rales, rhonchi or wheezes noted. No increased work of breathing, no retractions or nasal flaring. Abdomen/GI: Soft, non-tender, with normal bowel sounds. No distension or tympany. No guarding or rebound. No evidence of tenderness throughout. Back: No spinal tenderness. No costovertebral tenderness. Full range of motion. Skin: Warm, dry with normal turgor. Normal color with no rashes, no lesions, and no evidence of cellulitis. MS/ Extremity: Pulses equal, no cyanosis. Neurovascular intact. Full, normal range of motion. Neuro: Awake and alert, GCS 15, oriented to person, place, time, and situation. Cranial nerves II-XII grossly intact. Motor strength 5/5 in all extremities. Sensory grossly intact. Cerebellar exam normal. Normal gait. 09:39 Psych: Behavior/mood is pleasant, cooperative, anxious, Affect is calm, Oriented to person, place, Patient has no thoughts/intents to harm self or others. Vital Signs: 08:22 BP 136 / 92; Pulse 125; Resp 20; Temp 98.8; Pulse Ox 100% ; Weight 71.21 kg; Height 5 ww ft. 2 in. (157.48 cm); 08:22 Body Mass Index 28.72 (71.21 kg, 157.48 cm) ww MDM: 09:06 Patient medically screened. kdr 09:39 Data reviewed: vital signs, nurses notes. ED course: Schedule discussion of the kdr patient's symptoms and other associated issues, the patient elected to be discharged and to obtain [id number] medication for her current anxiousness. She was happy with the care provided the plan for discharge and follow-up. Administered Medications: No medications were administered Disposition Summary: 11/29/21 09:06 Discharge Ordered Location: Home kdr Problem: an ongoing problem kdr Symptoms: have improved kdr Condition: Stable kdr Diagnosis - Anxiety disorder, unspecified kdr - Generalized anxiety disorder kdr Followup: kdr - With: Private Physician - When: 2 - 3 days - Reason: If symptoms return, Further diagnostic work-up, Recheck today's complaints, Continuance of care, Re-evaluation by your physician Discharge Instructions: - Discharge Summary Sheet kdr - Panic Attack, [id number] kdr - Generalized Anxiety Disorder, Adult kdr Forms: - Medication Reconciliation Form kdr - Thank You Letter kdr Signatures: Rich Brandon MD MD kdr Citlaly Lewis RN RN ww
--- NOTE | 2021-11-29 09:07 | ER ---
Nurse's Notes [facility] Name: Rosa Maria Britton Age: 25 yrs Sex: Female : 1995 Arrival Date: 11/29/2021 Time: 08:15 Bed 12 Private MD: Diagnosis: Anxiety disorder, unspecified;Generalized anxiety disorder Presentation: 11/29 08:22 Chief complaint: Patient states: Having a lot of anxiety over the past few weeks that ww is causing her not to be able to sleep. She was evaluated on Tuesday. She states her fear is she is going to get sick. She denies any suicidal or homicidal thoughts or hallucinations. Coronavirus screen: Vaccine status: Patient reports being unvaccinated. Client denies travel out of the [place] in the last 14 days. Ebola Screen: Patient denies travel to an Ebola-affected area in the 21 days before illness onset. Initial Sepsis Screen: Does the patient meet any 2 criteria? No. Patient's initial sepsis screen is negative. Does the patient have a suspected source of infection? No. Patient's initial sepsis screen is negative. Risk Assessment: Do you want to hurt yourself or someone else? Patient reports no desire to harm self or others. Onset of symptoms is unknown. 08:22 Method Of Arrival: Ambulatory ww 08:22 Acuity: RONALD 4 ww 08:28 Chief complaint: Patient states: Patient states she was diagnosis with a UTI but has ww not started taking her medication for it yet. Triage Assessment: 08:26 General: Appears in no apparent distress. comfortable, Behavior is calm, cooperative. ww Pain: Denies pain. EENT: No signs and/or symptoms were reported regarding the EENT system. Neuro: Level of Consciousness is awake, alert, obeys commands, Oriented to person, place, time, situation, Gait is steady, Speech is normal. Cardiovascular: Capillary refill < 3 seconds Patient's skin is warm and dry. Respiratory: Airway is patent Respiratory effort is even, unlabored, Respiratory pattern is regular, symmetrical. GI: No signs and/or symptoms were reported involving the gastrointestinal system. Reports nausea, Patient currently denies constipation, diarrhea. : Reports diagnosis with a UTI but has not started taking the medicine for it yet. Derm: Skin is intact, is healthy with good turgor, Skin is pink, warm \T\ dry. 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 - Social history:: Smoking status: Patient denies any tobacco usage or history of. Patient/guardian denies using alcohol, street drugs. Screenin:29 Abuse screen: Denies threats or abuse. Denies injuries from another. Nutritional ww screening: No deficits noted. Tuberculosis screening: No symptoms or risk factors identified. Fall Risk None identified. Assessment: 09:16 Reassessment: Patient appears in no apparent distress at this time. No changes from ww previously documented assessment. Patient and/or family updated on plan of care and expected duration. Pain level reassessed. see triage assessment. GI: Reports nausea. Vital Signs: 08:22 BP 136 / 92; Pulse 125; Resp 20; Temp 98.8; Pulse Ox 100% ; Weight 71.21 kg; Height 5 ww ft. 2 in. (157.48 cm); 08:22 Body Mass Index 28.72 (71.21 kg, 157.48 cm) ww ED Course: 08:15 Patient arrived in ED. as 08:26 Triage completed. ww 08:26 Arm band placed on right wrist. ww 08:28 Rich Brandon MD is Attending Physician. kdr 09:16 Patient has correct armband on for positive identification. Bed in low position. Call ww light in reach. Side rails up X 1. Adult w/ patient. 09:16 No provider procedures requiring assistance completed. Patient did not have IV access ww during this emergency room visit. Administered Medications: No medications were administered Outcome: 09:06 Discharge ordered by . kdr 09:16 Discharged to home ambulatory, with family. ww 09:16 Condition: stable 09:16 Discharge instructions given to patient, family. 09:16 Instructed on discharge instructions, follow up and referral plans. medication usage, safety practices, Demonstrated understanding of instructions, follow-up care, medications. 09:19 Patient left the ED. ww Signatures: Rich Brandon MD MD kdr Martinez, Amelia as Wood, Whitney RN RN ww
[2021-11-29 09:24] VITALS: BP 136/92; TEMP 98.8; O2SAT 100
--- NOTE | 2021-11-30 08:26 | EKG ---
Test Date: 2021-11-27 Test Time: 15:53:48 Textile Engineer: DAMEON MEASUREMENT RESULTS: Intervals: Rate: 154 CO: 130 QRSD: 74 QT: 250 QTc: 400 [place]: P: 56 CO: 130 QRS: 79 T: 36 INTERPRETIVE STATEMENTS: Sinus tachycardia Otherwise normal ECG Compared to ECG 10/07/2016 14:21:51 Sinus rhythm no longer present Electronically Signed On 11-30-21 08:21:33 CDT by Alexy Romero
== END 2021-11-29 09:19 | disposition home or self-care (01) ==
LOC: ER 08:14
DX: F41.1 Generalized anxiety disorder (principal)
CPT/HCPCS: 93005; 99281